=== PATIENT | female | born 1995 | race Caucasian/White ===

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

== ENCOUNTER 2017-04-04 16:58 | Emergency (ER) | payer MEDICAID, OTHER ==
[~2017-04-04] VITALS: Ht 162.6 cm; Wt 94.0 kg
[~2017-04-04 16:58] MED LIST changes: -BACT800T5 PO; +MOME1AER2 INH; +VENTAER INH
[2017-04-04 17:07] VITALS: BP 126/61; PULSE 84; RESP 16; TEMP 98.6; O2SAT 97
--- NOTE | 2017-04-04 17:56 | PD ---
HPI Chief Complaint: Cold / Flu Symptoms Time Seen by Provider: 17:49 Travel History International Travel<30 days: No Contact w/Intl Traveler<30days: No Traveled to known affect area: No History of Present Illness HPI 21-year-old female resents for evaluation of nausea vomiting and diarrhea. Symptoms started yesterday. She reports multiple episodes of nonbloody nonbilious emesis as well as loose watery stools. She has had a cough and congestion over the past few weeks that seems to be resolving. She has had some chills today as well. Denies any dietary changes. Denies any sick contacts with gastrointestinal symptoms. Denies any abdominal pain, dysuria. She has no other complaints at this time. 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.) Social History Alcohol Use: No Tobacco Use: No Substance Use: No (hx of smoking weed) Allergies-Medications (Allergen,Severity, Reaction): Coded Allergies: No Known Allergies (Verified Adverse Reaction, Unknown, 04/04/17) Reported Meds & Prescriptions Reported Meds & Active Scripts Active Zofran (Ondansetron HCl) 4 Mg Tab 4 Mg PO Q6HR PRN Minastrin 24 Fe (Norethindrone-Ethinyl Estradiol-Fe) 1-20 Mg-Mcg Chew 1 Tab CHEW DAILY Asmanex 30 Act Twisthaler (Mometasone 30 Act Inh) 220 Mcg/Act Inh 1 Puff INH BID Ventolin Hfa 18 GM Inh (Albuterol Sulfate) 90 Mcg/Act Aer 2 Puff INH Q6H PRN Sertraline (Sertraline HCl) 25 Mg Tab 50 Mg PO DAILY Epipen 2-Terrell Inj (Epinephrine) 0.3 Mg/0.3 Ml Pfpen 0.3 Mg IM ONCE PRN Review of Systems General / Constitutional: Positive: Chills HENT: Positive: Rhinorrhea, No: Sore Throat Cardiovascular: No: Chest Pain or Discomfort Respiratory: Positive: Cough Gastrointestinal: Positive: Nausea, Vomiting, Diarrhea, No: Abdominal Pain Genitourinary: No: Urgency, Frequency, Dysuria Physical Exam Narrative GENERAL: Well-developed well-nourished female in no acute distress SKIN: Warm and dry. HEAD: Atraumatic. Normocephalic. EYES: Pupils equal and round. No scleral icterus. No injection or drainage. ENT: No nasal bleeding or discharge. Mucous membranes pink and moist. NECK: Trachea midline. No JVD. CARDIOVASCULAR: Regular rate and rhythm. No murmur appreciated. RESPIRATORY: No accessory muscle use. Clear to auscultation. Breath sounds equal bilaterally. GASTROINTESTINAL: Abdomen soft, non-tender, nondistended. Hepatic and splenic margins not palpable. MUSCULOSKELETAL: No obvious deformities. No clubbing. No cyanosis. No edema. NEUROLOGICAL: Awake and alert. No obvious cranial nerve deficits. Motor grossly within normal limits. Normal speech. PSYCHIATRIC: Appropriate mood and affect; insight and judgment normal. Data Data Last Documented VS Vital Signs Date Time Temp Pulse Resp B/P (MAP) Pulse Ox O2 Delivery O2 Flow Rate FiO2 04/04/17 17:07 98.6 84 16 126/61 (82) 97 Orders Orders Ed Urine Pregnancytest Poc (04/04/17 17:54) Oral Rehydration (04/04/17 17:54) Influenzae A/B Antigen (04/04/17 17:54) Ondansetron Odt (Zofran Odt) (04/04/17 18:00) Ed Discharge Order (04/04/17 18:57) [facility] Medical Decision Making Medical Screen Exam Complete: Yes Emergency Medical Condition: Yes Medical Record Reviewed: Yes Differential Diagnosis Gastroenteritis, dehydration, electrolyte abnormality, food poisoning, gastritis , influenza Narrative Course 21-year-old female who is had resolving cough and cold symptoms presents now with 2 days of nausea vomiting and diarrhea. She appears well. Her abdomen is soft and nontender. She does not appear acutely dehydrated. I suspect a viral gastroenteritis. She will be given Zofran, oral rehydration. Urine test and influenza antigen test and ordered. Influenza antigen is negative. After Zofran blisters and she feels much better and was able to tolerate oral hydration. She will be discharged with a short course of Zofran. Diagnosis Primary Impression: Viral gastroenteritis Additional Instructions: Medication as needed for nausea. Slowly advance diet as tolerated. Return for any acutely new or worsening symptoms. Med/Other Pt SpecificInfo: Prescription(s) given Scripts Ondansetron (Zofran) 4 Mg Tab 4 MG PO Q6HR Y for NAUSEA OR VOMITING, #20 TAB 0 Refills Prov: Ita Lazo DO 04/04/17 Disposition: 01 DISCHARGE HOME Condition: Stable Og Benton Apr 04, 2017 17:56
[2017-04-04] MEDS ORDERED: ONDANSETRON ODT 4 MG TAB PO ONE (18:00)
[2017-04-04] MEDS ORDERED: ZOFR4TAB PO (18:56)
== END 2017-04-04 19:12 | disposition home or self-care (01) ==
LOC: PHEFT 16:58
DX: A08.4 Viral intestinal infection, unspecified (principal); R05 Cough
CPT/HCPCS: 84703; 87804; 99283

== ENCOUNTER 2017-05-18 14:39 | Emergency (ER) | payer OTHER ==
[~2017-05-18] VITALS: Ht 162.6 cm; Wt 94.0 kg
[~2017-05-18 14:39] MED LIST changes: +ZOFR4TAB PO
[2017-05-18 14:42] VITALS: BP 145/69; PULSE 96; RESP 16; TEMP 98.9; O2SAT 98
--- NOTE | 2017-05-18 15:05 | PD ---
HPI Chief Complaint: ENT Complaint Time Seen by Provider: 14:54 Travel History International Travel<30 days: No Contact w/Intl Traveler<30days: No Traveled to known affect area: No History of Present Illness HPI 21-year-old female with no significant medical history presents to emergency department for evaluation of a sore throat since this morning. Moderate in severity. She is able to swallow her secretions. She denies any difficulty breathing. Patient states that over the last 3 months she has had this 3 or 4 times. She has not followed up with a primary care provider. She denies any fever or chills. No body aches. No cough or chest congestion. She has been nauseous without vomiting. She has Zofran for this and it seemed to help. No other symptoms to report. PFSH Past Medical History Depression: Yes Diminished Hearing: No Gastrointestinal Disorders: Yes (IBS) Integumentary: Yes Immunizations Current: Yes Tetanus Vaccination: > 5 Years Influenza Vaccination: No ?: Not LMP: 2WEEKS AGO Menopausal: Yes Past Surgical History Abdominal Surgery: Yes (COLONOSCOPY AND ENDOSCOPY) Other Surgery: Yes (SOME TYPE OF CYST ON BACK AND FACE WHEN SHE WAS [address] SCHNEIDER.) Social History Alcohol Use: No Tobacco Use: No Substance Use: No (weed) Allergies-Medications (Allergen,Severity, Reaction): Coded Allergies: No Known Allergies (Verified Adverse Reaction, Unknown, 05/18/17) Reported Meds & Prescriptions Reported Meds & Active Scripts Active Zofran (Ondansetron HCl) 4 Mg Tab 4 Mg PO Q6HR PRN Ventolin Hfa 18 GM Inh (Albuterol Sulfate) 90 Mcg/Act Aer 2 Puff INH Q6H PRN Review of Systems Except as stated in HPI: all other systems reviewed are Neg Physical Exam Narrative GENERAL: Well-nourished, well-developed female patient in no acute distress SKIN: Focused skin assessment warm/dry. HEAD: Normocephalic. ENT: Mucosa pink and moist. Mild erythema without exudate No uvular edema. No uvular, palatal, or tonsillar deviation. Airway patent. Nasal turbinates appear normal without nasal blood, purulent drainage or septal hematoma. EYES: No scleral icterus. No injection or drainage. NECK: Supple, trachea midline. No JVD or lymphadenopathy. CARDIOVASCULAR: Regular rate and rhythm without murmurs, gallops, or rubs. RESPIRATORY: Breath sounds equal bilaterally. No accessory muscle use. GASTROINTESTINAL: Abdomen soft, non-tender, nondistended. MUSCULOSKELETAL: No cyanosis, or edema. BACK: Nontender without obvious deformity. No CVA tenderness. Data Data Last Documented VS Vital Signs Date Time Temp Pulse Resp B/P (MAP) Pulse Ox O2 Delivery O2 Flow Rate FiO2 05/18/17 14:42 98.9 96 16 145/69 (94) 98 Orders Orders Group A Rapid Strep Screen (05/18/17 15:10) Ed Discharge Order (05/18/17 15:10) Strep Culture (Group A) (05/18/17 15:18) MDM Medical Decision Making Medical Screen Exam Complete: Yes Emergency Medical Condition: Yes Medical Record Reviewed: Yes Differential Diagnosis Viral pharyngitis versus strep pharyngitis versus allergies versus postnasal drip Narrative Course 21-year-old female presents to emergency department for evaluation of sore throat. Patient appears nontoxic. Her vital signs are stable. She has a mildly erythematous pharynx. No exudate. Per request, strep culture was sent. Patient will be discharged to follow-up with a primary care provider. She agrees to return immediately with any acute worsening symptoms. Diagnosis Primary Impression: Pharyngitis Qualified Codes: J02.9 - Acute pharyngitis, unspecified Referrals: Primary Care Physician Patient Instructions: General Instructions, Pharyngitis (ED) Additional Instructions: Warm salt water gargles may help to alleviate symptoms Follow-up with a primary care provider Seek ear nose and throat evaluation if symptoms persist Return immediately with any acute worsening of symptoms Med/Other Pt SpecificInfo: No Change to Meds Disposition: 01 DISCHARGE HOME Condition: Stable Yeny Morales CYNTHIA May 18, 2017 15:05
== END 2017-05-18 15:25 | disposition left against medical advice (07) ==
LOC: PHEFT 14:39
DX: J02.9 Acute pharyngitis, unspecified (principal); R11.0 Nausea; Z87.19 Personal history of other diseases of the digestive system; Z87.2 Personal history of diseases of the skin and subcutaneous tissue; Z86.59 Personal history of other mental and behavioral disorders
CPT/HCPCS: 87081; 87880; 99283

== ENCOUNTER 2017-08-07 12:07 | Emergency (ER) | payer OTHER ==
[~2017-08-07] VITALS: Ht 162.6 cm; Wt 100.0 kg
[~2017-08-07 12:07] MED LIST changes: -EPIP0.3I IM; -MOME1AER2 INH; -NORE1CHW4 CHEW; -SERT25TA83 PO
[2017-08-07 12:15] VITALS: BP 151/63; PULSE 95; RESP 18; TEMP 98.8; O2SAT 97
[2017-08-07] MEDS ORDERED: SODIUM CHLORIDE 0.9% FLUSH 10 ML FLUSH IVF PRN (12:45)
[2017-08-07] MEDS ORDERED: methylPREDNISolone SOD SUCC 125 MG/2 ML VIAL IV PUSH ONE (12:45)
[2017-08-07] MEDS: RESP: ALBUTEROL 2.5 MG/IPRATROPIUM 0.5 MG NEB (SCH) INH (13:05)
--- NOTE | 2017-08-07 13:19 | PD ---
HPI Chief Complaint: Syncope/Near-Syncope Time Seen by Provider: 12:30 Travel History International Travel<30 days: No Contact w/Intl Traveler<30days: No Traveled to known affect area: No History of Present Illness HPI Patient is a 21-year-old female presenting to the emergency department for evaluation after a syncopal episode. Patient states she was in the shower this morning when she passed out and woke up on the bathroom floor. She states she has had a head cold for the last 2 days, she reports shortness of breath and wheezing. She denies any chest pain prior to passing out. She states she has been dizzy due to the nasal congestion, she reports a nonproductive cough as well. She states she has a history of exercise-induced asthma. Patient denies any nausea, vomiting, fever, chills. Symptom onset was sudden, symptoms are moderate in nature. Patient denies any syncopal episodes in the past. She does report using marijuana but denies any tobacco use PFSH Past Medical History Asthma: Yes (Exercise-induced) Depression: Yes Diminished Hearing: No Gastrointestinal Disorders: Yes (IBS) Integumentary: Yes Immunizations Current: Yes ?: Not Menopausal: Yes Past Surgical History Abdominal Surgery: Yes (COLONOSCOPY AND ENDOSCOPY) Other Surgery: Yes (SOME TYPE OF CYST ON BACK AND FACE WHEN SHE WAS [address] SCHNEIDER.) Social History Alcohol Use: No Tobacco Use: No Substance Use: No (weed) Allergies-Medications (Allergen,Severity, Reaction): Coded Allergies: No Known Allergies (Verified Adverse Reaction, Unknown, 08/07/17) Reported Meds & Prescriptions Reported Meds & Active Scripts Active Ventolin Hfa 18 GM Inh (Albuterol Sulfate) 90 Mcg/Act Aer 2 Puff INH Q6H PRN Review of Systems Except as stated in HPI: all other systems reviewed are Neg HENT: Positive: Headaches, Lightheadedness Cardiovascular: No: Chest Pain or Discomfort, Palpitations Respiratory: Positive: Cough, Shortness of Breath, Wheezing Gastrointestinal: No: Nausea, Vomiting, Abdominal Pain Musculoskeletal: No: Myalgias Neurologic: Positive: Dizziness, Syncope, Headache Physical Exam Narrative GENERAL: Well-developed, well-nourished, alert female. Presenting in no acute distress. SKIN: Warm and dry. HEAD: Atraumatic. Normocephalic. EYES: Pupils equal and round. No scleral icterus. No injection or drainage. Extraocular movements are intact. ENT: No nasal bleeding or discharge. Mucous membranes pink and moist. NECK: Trachea midline. No JVD. CARDIOVASCULAR: Regular rate and rhythm. RESPIRATORY: No accessory muscle use. Wheezing throughout lung fajardo. GASTROINTESTINAL: Abdomen soft, non-tender, nondistended. Hepatic and splenic margins not palpable. MUSCULOSKELETAL: Extremities without clubbing, cyanosis, or edema. No obvious deformities. NEUROLOGICAL: Awake and alert. No obvious cranial nerve deficits. Motor grossly within normal limits. Five out of 5 muscle strength in the arms and legs. Normal speech. PSYCHIATRIC: Appropriate mood and affect; insight and judgment normal. Data Data Last Documented VS Vital Signs Date Time Temp Pulse Resp B/P (MAP) Pulse Ox O2 Delivery O2 Flow Rate FiO2 08/07/17 14:24 98 18 105/51 (69) 98 Room Air 08/07/17 12:15 98.8 Orders Orders Electrocardiogram (08/07/17 ) Complete Blood Count With Diff (08/07/17 12:17) Comprehensive Metabolic Panel (08/07/17 12:17) Electrocardiogram (08/07/17 ) Chest, Pa & Lat (08/07/17 12:41) Ecg Monitoring (08/07/17 12:41) Iv Access Insert/Monitor (08/07/17 12:41) Oximetry (08/07/17 12:41) Oxygen Administration (08/07/17 12:41) Methylprednisolone So Succ Inj (Solumedr (08/07/17 12:45) Albuterol-Ipratropium Neb (Duoneb Neb) (08/07/17 12:45) Sodium Chloride 0.9% Flush (Ns Flush) (08/07/17 12:45) Ct Brain W/O Iv Contrast(Rout) (08/07/17 ) Ed Urine Pregnancytest Poc (08/07/17 12:41) Orthostatic Vital Signs (08/07/17 13:38) Albuterol-Ipratropium Neb (Duoneb Neb) (08/07/17 15:00) Budesonide Neb (Pulmicort Respule Neb) (08/07/17 15:00) Labs Laboratory Tests Test 08/07/17 13:30 White Blood Count 7.9 TH/MM3 Red Blood Count 4.81 MIL/MM3 Hemoglobin 13.1 GM/DL Hematocrit 40.9 % Mean Corpuscular Volume 85.0 FL Mean Corpuscular Hemoglobin 27.2 PG Mean Corpuscular Hemoglobin Concent 32.1 % Red Cell Distribution Width 14.6 % Platelet Count 233 TH/MM3 Mean Platelet Volume 8.5 FL Neutrophils (%) (Auto) 46.9 % Lymphocytes (%) (Auto) 33.0 % Monocytes (%) (Auto) 6.2 % Eosinophils (%) (Auto) 13.2 % Basophils (%) (Auto) 0.7 % Neutrophils # (Auto) 3.7 TH/MM3 Lymphocytes # (Auto) 2.6 TH/MM3 Monocytes # (Auto) 0.5 TH/MM3 Eosinophils # (Auto) 1.0 TH/MM3 Basophils # (Auto) 0.1 TH/MM3 CBC Comment DIFF FINAL Differential Comment Blood Urea Nitrogen 10 MG/DL Creatinine 0.93 MG/DL Random Glucose 96 MG/DL Total Protein 7.7 GM/DL Albumin 4.2 GM/DL Calcium Level 9.2 MG/DL Alkaline Phosphatase 123 U/L Aspartate Amino Transf (AST/SGOT) 18 U/L Alanine Aminotransferase (ALT/SGPT) 36 U/L Total Bilirubin 0.5 MG/DL Sodium Level 141 MEQ/L Potassium Level 3.5 MEQ/L Chloride Level 107 MEQ/L Carbon Dioxide Level 22.9 MEQ/L Anion Gap 11 MEQ/L Estimat Glomerular Filtration Rate 78 ML/MIN MDM Medical Decision Making Medical Screen Exam Complete: Yes Emergency Medical Condition: Yes Interpretation(s) Last Impressions Chest X-Ray 08/07/17 1241 Signed Impressions: CONCLUSION: Negative examination. Head CT 08/07/17 0000 Signed Impressions: CONCLUSION: 1. Negative CT Head non contrast. Laboratory Tests Test 08/07/17 13:30 White Blood Count 7.9 TH/MM3 Red Blood Count 4.81 MIL/MM3 Hemoglobin 13.1 GM/DL Hematocrit 40.9 % Mean Corpuscular Volume 85.0 FL Mean Corpuscular Hemoglobin 27.2 PG Mean Corpuscular Hemoglobin Concent 32.1 % Red Cell Distribution Width 14.6 % Platelet Count 233 TH/MM3 Mean Platelet Volume 8.5 FL Neutrophils (%) (Auto) 46.9 % Lymphocytes (%) (Auto) 33.0 % Monocytes (%) (Auto) 6.2 % Eosinophils (%) (Auto) 13.2 % Basophils (%) (Auto) 0.7 % Neutrophils # (Auto) 3.7 TH/MM3 Lymphocytes # (Auto) 2.6 TH/MM3 Monocytes # (Auto) 0.5 TH/MM3 Eosinophils # (Auto) 1.0 TH/MM3 Basophils # (Auto) 0.1 TH/MM3 CBC Comment DIFF FINAL Differential Comment Blood Urea Nitrogen 10 MG/DL Creatinine 0.93 MG/DL Random Glucose 96 MG/DL Total Protein 7.7 GM/DL Albumin 4.2 GM/DL Calcium Level 9.2 MG/DL Alkaline Phosphatase 123 U/L Aspartate Amino Transf (AST/SGOT) 18 U/L Alanine Aminotransferase (ALT/SGPT) 36 U/L Total Bilirubin 0.5 MG/DL Sodium Level 141 MEQ/L Potassium Level 3.5 MEQ/L Chloride Level 107 MEQ/L Carbon Dioxide Level 22.9 MEQ/L Anion Gap 11 MEQ/L Estimat Glomerular Filtration Rate 78 ML/MIN Vital Signs Date Time Temp Pulse Resp B/P (MAP) Pulse Ox O2 Delivery O2 Flow Rate FiO2 08/07/17 12:15 98.8 95 18 151/63 (92) 97 Differential Diagnosis Bronchitis versus pneumonia versus syncope versus metabolic abnormality versus cardiac arrhythmia versus other Narrative Course Patient is a 21-year-old female presenting after syncopal episode this morning that was unwitnessed. Patient's vital signs are stable. On exam she was noted to have significant inspiratory and expiratory wheezes. Chest x-ray, duo nebs, Solu-Medrol ordered. Labs ordered and pending. Friend at bedside. EKG shows sinus rhythm, this was reviewed by my attending physician. Chest x-ray shows no acute disease CT the brain which is read by the radiologist shows no acute abnormality. Labs reviewed, no acute findings identified. Patient reports improvement in her breathing after 2 DuoNeb treatments. Lung sounds are reassessed, patient continues to have scattered expiratory wheezes. A third DuoNeb treatment as well as budesonide nebulizer treatment was ordered. Patient will be discharged home, she will be provided with a prescription for inhaler, steroids and azithromycin. She is encouraged to follow-up with her primary doctor or return to emergency department for any new or worsening symptoms. Patient verbalized understanding of these instructions. Patient is stable for discharge. Plan of care was discussed with my attending physician. Diagnosis Primary Impression: Syncope Qualified Codes: R55 - Syncope and collapse Additional Impression: Acute bronchitis Qualified Codes: J20.9 - Acute bronchitis, unspecified Referrals: Primary Care Physician 2 days Patient Instructions: Acute Bronchitis (ED), General Instructions, Syncope (ED) Additional Instructions: Maintain adequate fluid intake Avoid prolonged hot showers Take medications as directed Follow-up with your primary doctor Return to emergency department for any new or worsening symptoms Med/Other Pt SpecificInfo: Prescription(s) given Scripts Azithromycin (Azithromycin) 250 Mg Tab 250 MG PO DIRECTED for Infection, #6 TAB 0 Refills Take 2 tabs (500 mg) on day 1 then 1 tab daily x 4 days. Prov: Zora Salas 08/07/17 Prednisone (Prednisone) 50 Mg Tab 50 MG PO DAILY for 5 Days, #5 TAB 0 Refills Prov: Zora Salas 08/07/17 Albuterol 18 GM Inh (Ventolin Hfa 18 GM Inh) 90 Mcg/Act Aer 2 PUFF INH Q4-6H Y for SHORTNESS OF BREATH, #1 INHALER 0 Refills Prov: Zora Salas 08/07/17 Disposition: 01 DISCHARGE HOME Condition: Stable Zora Salas Aug 07, 2017 13:19
[2017-08-07 13:41] LABS: AUTOMATED NEUTROPHIL # 3.7 TH/MM3 (1.8-7.7); BASOPHIL # 0.1 TH/MM3 (0-0.2); BASOPHIL % 0.7 % (0.0-2.0); EOSINOPHIL % 13.2 % (0.0-4.0); HEMATOCRIT 40.9 % (35.0-46.0); HEMOGLOBIN 13.1 GM/DL (11.6-15.3); LYMPHOCYTE # 2.6 TH/MM3 (1.0-4.8); MEAN CORPUSCULAR HEMOGLOBIN 27.2 PG (27.0-34.0); MEAN CORPUSCULAR HGB CONC 32.1 % (32.0-36.0); MEAN PLATELET VOLUME 8.5 FL (7.0-11.0); MONO % 6.2 % (0.0-8.0); MONOCYTE # 0.5 TH/MM3 (0-0.9); NEUT % 46.9 % (16.0-70.0); PLATELET COUNT 233 TH/MM3 (150-450); RED BLOOD COUNT 4.81 MIL/MM3 (4.00-5.30); RED CELL DISTRIBUTION WIDTH 14.6 % (11.6-17.2); WHITE BLOOD COUNT 7.9 TH/MM3 (4.0-11.0)
[2017-08-07 13:56] LABS: ALBUMIN 4.2 GM/DL (3.4-5.0); AST (GOT) 18 U/L (16-38); BICARBONATE 22.9 MEQ/L (21.0-32.0); BLOOD UREA NITROGEN 10 MG/DL (7-18); CALCIUM 9.2 MG/DL (8.5-10.1); CHLORIDE 107 MEQ/L (98-107); CREATININE 0.93 MG/DL (0.50-1.00); GLOMERULAR FILTRATION RATE 78 ML/MIN (>89); GLUCOSE,RANDOM 96 MG/DL (74-106); SODIUM (NA) 141 MEQ/L (136-145)
[2017-08-07 13:57] LABS: ALT (GPT) 36 U/L (9-42)
[2017-08-07 13:59] LABS: ALKALINE PHOSPHATASE 123 U/L (45-117); TOTAL BILIRUBIN ADULT 0.5 MG/DL (0.2-1.0); TOTAL PROTEIN 7.7 GM/DL (6.4-8.2)
--- NOTE | 2017-08-07 14:15 | RADRPT ---
EXAM DATE: 08/07/2017 2:06 PM EDT AGE/SEX: 21 years / Female INDICATIONS: Syncope today. CLINICAL DATA: This is the patient's initial encounter. Patient reports that signs and symptoms have been present for 1 day and indicates a pain score of 0/10. MEDICAL/SURGICAL HISTORY: None. None. RADIATION DOSE: 56.35 CTDI (mGy) COMPARISON: [facility], CT BRAIN W/O CONTRAST, 03/29/2016. . TECHNIQUE: CT of the head without contrast. Using automated exposure control and adjustment of the mA and/or kV according to patient size, radiation dose was kept as low as reasonably achievable to ob tain optimal diagnostic quality images. FINDINGS: Cerebrum: The ventricles are normal for age. No evidence of midline shift, mass lesion, hemorrhage or acute infarction. No extraaxial fluid collections are seen. Posterior Fossa: The cerebellum and brainstem are intact. The 4th ventricle is midline. The cerebe llopontine angle is unremarkable. Extracranial: The visualized portion of the orbits is intact. Skull: The calvaria is intact. No evidence of skull fracture. CONCLUSION: 1. Negative CT Head non contrast. Electronically signed by: Dat Perez MD 08/07/2017 2:13 PM EDT
--- NOTE | 2017-08-07 14:21 | RADRPT ---
EXAM DATE: 08/07/2017 1:52 PM EDT AGE/SEX: 21 years / Female INDICATIONS: Short of breath. CLINICAL DATA: This is the patient's initial encounter. Patient reports that signs and symptoms have been present for 1 day and indicates a pain score of 0/10. MEDICAL/SURGICAL HISTORY: None. None. COMPARISON: No prior [facility] exams available for comparison. FINDINGS: PA and lateral views of the chest demonstrate the lungs to be symmetrically aerated without evidence of mass, infiltrate or effusion. The cardiomediastinal contours are unremarkable. Osseous structures are intact. CONCLUSION: Negative examination. Electronically signed by: Dat Perez MD 08/07/2017 2:19 PM EDT
[2017-08-07 14:22] VITALS: BP 113/55
[2017-08-07 14:23] VITALS: BP 105/51
[2017-08-07 14:24] VITALS: BP 105/51; PULSE 98; RESP 18; O2SAT 98
[2017-08-07] MEDS ORDERED: VENTAER INH (14:56)
[2017-08-07] MEDS ORDERED: PRED50 PO (14:56)
[2017-08-07] MEDS ORDERED: AZIT250T3 PO (14:56)
[2017-08-07] MEDS ORDERED: IBUPROFEN 800 MG TAB PO ONE (15:00)
[2017-08-07] MEDS ORDERED: RESP: BUDESONIDE 0.5 MG/2 ML NEB NEB ONE (15:00)
[2017-08-07] MEDS ORDERED: RESP: ALBUTEROL 2.5 MG/IPRATROPIUM 0.5 MG NEB (SCH) NEB ONE (15:00)
[2017-08-07 15:42] VITALS: BP 129/66; PULSE 101; RESP 24; O2SAT 97
--- NOTE | 2017-08-08 19:21 | EKG ---
Date Performed: 08/07/2017 Time Performed: 13:31:00 PTAGE: 21 years EKG: Sinus rhythm WITH SHORT AK INTERVAL POSSIBLE RIGHT VENTRICULAR CONDUCTION DELAY NONSPECIFIC T-WAVE ABNORMALITY DIOGENES RDERLINE ECG PREVIOUS TRACING : 02/08/2016 18.13 Since the previous tracing, no significant change noted DOCTOR: Vesta Santizo Interpretating Date/Time 08/08/2017 19:20:15
== END 2017-08-07 15:52 | disposition home or self-care (01) ==
LOC: NEPD 12:07
DX: R55 Syncope and collapse (principal); J20.9 Acute bronchitis, unspecified; R94.31 Abnormal electrocardiogram [ECG] [EKG]; J45.990 Exercise induced bronchospasm; F32.9 Major depressive disorder, single episode, unspecified; K58.9 Irritable bowel syndrome, unspecified; F12.90 Cannabis use, unspecified, uncomplicated
CPT/HCPCS: 70450; 71046; 80053; 84703; 85025; 93005; 94640; 94664; 96374; 99285; J2930; J7626